=== PATIENT | female | born 1990 | race Caucasian/White ===

== ENCOUNTER → 2021-05-03 | Outpatient (CLI) | payer BC ==
[2021-05-03 11:09] LABS: BASO % 0.4 % (0.0-1.0); EOS # 0.1 10^3/uL (0.0-0.5); EOS % 1.3 % (0.0-3.0); HEMATOCRIT 35.1 % (36.0-47.0); HEMOGLOBIN 11.6 g/dl (12.0-15.5); LYMPH # 2.3 10^3/uL (1.5-5.0); LYMPH % 23.6 % (24.0-44.0); MEAN CORPUSCULAR HEMOGLOBIN 31.6 pg (27.0-33.0); MEAN CORPUSCULAR VOLUME 95.6 fl (80.0-96.0); MONO # 0.7 10^3/uL (0.0-0.8); MONO % 7.2 % (2.0-8.0); NEUTROPHILS # 6.5 10^3/uL (1.5-8.5); NEUTROPHILS % 67.1 % (36.0-66.0); PLATELET COUNT, AUTOMATED 243 10^3/uL (150-450); RED BLOOD COUNT 3.67 10^6/uL (4.00-5.40); WHITE BLOOD COUNT 9.7 10^3/uL (4.0-10.0)
== END ==
LOC: M LAB 09:37
PROVIDERS: ATTEND Nurse Practitioner Family
DX: O26.899 Other specified pregnancy related conditions, unspecified trimester (principal); R79.9 Abnormal finding of blood chemistry, unspecified

== ENCOUNTER → 2021-05-13 | Outpatient (CLI) | payer BC, OTHER ==
[2021-05-13 13:43] LABS: HEMATOCRIT 36.9 % (36.0-47.0); MEAN CORPUSCULAR HEMOGLOBIN 31.3 pg (27.0-33.0); MEAN CORPUSCULAR HGB CONC 32.5 g/dl (32.0-36.5); MEAN CORPUSCULAR VOLUME 96.3 fl (80.0-96.0); PLATELET COUNT, AUTOMATED 252 10^3/uL (150-450); RED BLOOD COUNT 3.83 10^6/uL (4.00-5.40); WHITE BLOOD COUNT 10.6 10^3/uL (4.0-10.0)
[2021-05-13 15:26] LABS: HEPATITIS C VIRUS ABY INDEX < 0.0 INDEX (<0.8); HIV 1&2 SCREEN CENTAUR NEGATIVE (NEGATIVE)
[2021-05-13 15:55] LABS: TOTAL PROTEIN,RANDOM URINE 20.1 MG/DL (0.0-12.0)
[2021-05-13 17:02] LABS: GC DNA AMPLIFICATION NEGATIVE (NEGATIVE)
== END ==
LOC: M PLALAB 10:24
PROVIDERS: ATTEND Obstetrics & Gynecology
DX: Z34.90 Encounter for supervision of normal pregnancy, unspecified, unspecified trimester (principal); Z3A.00 Weeks of gestation of pregnancy not specified

== ENCOUNTER → 2021-05-21 | Outpatient (CLI) | payer BC, OTHER ==
--- NOTE | 2021-05-21 14:51 | REP ---
INDICATION: DATING AND VIABILITY. COMPARISON: None. TECHNIQUE: Real-time sonographic evaluation of gravid uterus performed. FINDINGS: There is a single living intrauterine gestation, estimated gestational age is 8 weeks 5 days based on a crown-rump length of 21 mm. heart rate is 167 beats per minute. There is no subchorionic hemorrhage. The ovaries are normal in appearance. IMPRESSION: Viable intrauterine gestation, estimated gestational age 8 weeks 5 days, EDC 12/26/2021. <Electronically signed by Jay Pulido > 05/21/21 [id number]
== END ==
LOC: M WHC 12:22
PROVIDERS: ATTEND Obstetrics & Gynecology
DX: Z34.82 Encounter for supervision of other normal pregnancy, second trimester (principal)

== ENCOUNTER → 2021-06-04 | Outpatient (CLI) | payer BC, OTHER | LOC: M PLALAB 12:50 | PROVIDERS: ATTEND Obstetrics & Gynecology | DX: Z34.81 Encounter for supervision of other normal pregnancy, first trimester (principal) ==

== ENCOUNTER → 2021-11-08 | Outpatient (CLI) | payer BC, OTHER ==
[2021-11-08 13:35] LABS: HEMATOCRIT 32.5 % (36.0-47.0); HEMOGLOBIN 10.5 g/dl (12.0-15.5); MEAN CORPUSCULAR HEMOGLOBIN 30.2 pg (27.0-33.0); MEAN CORPUSCULAR HGB CONC 32.3 g/dl (32.0-36.5); MEAN CORPUSCULAR VOLUME 93.4 fl (80.0-96.0); PLATELET COUNT, AUTOMATED 244 10^3/uL (150-450); RED BLOOD COUNT 3.48 10^6/uL (4.00-5.40); WHITE BLOOD COUNT 12.6 10^3/uL (4.0-10.0)
[2021-11-08 14:10] LABS: TOTAL PROTEIN,RANDOM URINE 34.4 MG/DL (0.0-12.0)
[2021-11-08 14:17] LABS: ALBUMIN 2.8 GM/DL (3.2-5.2); ALT/SGPT 20 U/L (12-78); BILIRUBIN,TOTAL 0.2 MG/DL (0.2-1.0); BLOOD UREA NITROGEN 8 MG/DL (7-18); CARBON DIOXIDE LEVEL 27 MEQ/L (21-32); CHLORIDE LEVEL 105 MEQ/L (98-107); CREATININE FOR GFR 0.55 MG/DL (0.55-1.30); GLOMERULAR FILTRATION RATE > 60.0 (>60); GLUCOSE CHALLENGE TEST 1 HOUR 122 MG/DL (LESS THAN 140); GLUCOSE, FASTING 122 MG/DL (70-100); POTASSIUM SERUM 3.9 MEQ/L (3.5-5.1); SODIUM LEVEL 137 MEQ/L (136-145); TOTAL PROTEIN 6.3 GM/DL (6.4-8.2)
[2021-11-08 16:27] LABS: GC DNA AMPLIFICATION NEGATIVE (NEGATIVE)
== END ==
LOC: M PLALAB 10:54
PROVIDERS: ATTEND Obstetrics & Gynecology
DX: Z34.82 Encounter for supervision of other normal pregnancy, second trimester (principal)

== ENCOUNTER 2021-11-11 11:24 | Outpatient (CLI) | payer BC, OTHER ==
[~2021-11-11] VITALS: Ht 167.6 cm; Wt 91.7 kg
[2021-11-11 11:45] VITALS: BP 131/60
[2021-11-11] MEDS ORDERED: PRENTAB9 PO (11:49)
[2021-11-11] MEDS ORDERED: GABA-283 PO (11:57)
[2021-11-11] MEDS ORDERED: FERR325T3 PO (11:57)
[2021-11-11] MEDS ORDERED: CLAR10CA3 PO (11:57)
[2021-11-11] MEDS ORDERED: HYDR-3363 PO ×2 (11:57)
[2021-11-11] MEDS ORDERED: BUSP10TA PO (11:57)
[2021-11-11 11:58] VITALS: BP 117/56
[2021-11-11] MEDS ORDERED: HOME MED LIST COMPLETE! XX SCH (12:00)
[2021-11-11 13:16] LABS: AMORPHOUS SEDIMENT SMALL (NEGATIVE); APPEARANCE, URINE CLOUDY (CLEAR); BACTERIA, URINE AUTO 1+ (NEGATIVE); BILIRUBIN, URINE AUTO NEGATIVE (NEGATIVE); BLOOD, URINE BLOOD NEGATIVE (NEGATIVE); CALCIUM OXALATE CRYSTALS SMALL; COLOR, URINE YELLOW (YELLOW); GLUCOSE, URINE (UA) AUTO NEGATIVE (NEGATIVE); KETONE, URINE AUTO NEGATIVE (NEGATIVE); LEUKOCYTE ESTERASE, URINE AUTO NEGATIVE (NEGATIVE); MUCUS, URINE SMALL (NEGATIVE); NITRITE, URINE AUTO NEGATIVE (NEGATIVE); PROTEIN, URINE AUTO 1+ mg/dL (NEGATIVE); RBC, URINE AUTO 15 /HPF (0-3); SPECIFIC GRAVITY URINE AUTO 1.018 (1.002-1.035); SQUAMOUS EPITHELIAL CELL UR AU 16 /HPF (0-6); TRANSITIONAL EPITHELIAL AUTO <1 /HPF; UROBILINOGEN, URINE AUTO 0.2 mg/dL (0.0-2.0); WBC, URINE AUTO 2 /HPF (0-3)
[2021-11-11 13:34] VITALS: BP 117/58
[2021-11-11 14:07] LABS: HEMOGLOBIN 10.4 g/dl (12.0-15.5); MEAN CORPUSCULAR HEMOGLOBIN 30.4 pg (27.0-33.0); MEAN CORPUSCULAR HGB CONC 32.5 g/dl (32.0-36.5); MEAN CORPUSCULAR VOLUME 93.6 fl (80.0-96.0); PLATELET COUNT, AUTOMATED 243 10^3/uL (150-450); RED BLOOD COUNT 3.42 10^6/uL (4.00-5.40); WHITE BLOOD COUNT 13.9 10^3/uL (4.0-10.0)
[2021-11-11 14:34] LABS: ALBUMIN 2.7 GM/DL (3.2-5.2); ALT/SGPT 17 U/L (12-78); BILIRUBIN,TOTAL 0.2 MG/DL (0.2-1.0); BLOOD UREA NITROGEN 11 MG/DL (7-18); CARBON DIOXIDE LEVEL 25 MEQ/L (21-32); CHLORIDE LEVEL 108 MEQ/L (98-107); CREATININE FOR GFR 0.56 MG/DL (0.55-1.30); GLOMERULAR FILTRATION RATE > 60.0 (>60); GLUCOSE, FASTING 86 MG/DL (70-100); POTASSIUM SERUM 4.2 MEQ/L (3.5-5.1); SODIUM LEVEL 138 MEQ/L (136-145); TOTAL PROTEIN 6.4 GM/DL (6.4-8.2)
[2021-11-11] MEDS ORDERED: SUMAtriptan SUCCINATE 25 MG TAB PO ONE (16:00)
[2021-12-05] MEDS ORDERED: ZYRT10TA12 PO (07:48)
== END 2021-11-11 16:30 | disposition home or self-care (01) ==
LOC: M LDO 11:24
PROVIDERS: ATTEND Advanced Practice Midwife
DX: O26.893 Other specified pregnancy related conditions, third trimester (principal); O99.513 Diseases of the respiratory system complicating pregnancy, third trimester; G43.909 Migraine, unspecified, not intractable, without status migrainosus; G40.909 Epilepsy, unspecified, not intractable, without status epilepticus; J00 Acute nasopharyngitis [common cold]; O34.219 Maternal care for unspecified type scar from previous cesarean delivery; O99.353 Diseases of the nervous system complicating pregnancy, third trimester; Z3A.33 33 weeks gestation of pregnancy
CPT/HCPCS: 36415; 59025; 80053; 81001; 85027; 87086; 87486; 87581; 87633; 87798; G0463

== ENCOUNTER → 2021-12-03 | Outpatient (REF) | payer BC, MEDICAID, OTHER ==
[~2021-12-03] MED LIST: BUSP10TA PO; CLAR10CA3 PO; FERR325T3 PO; GABA-283 PO; HYDR-3363 PO; IBUP-1022 PO; OXYC-517 PO; PRENTAB9 PO; ZYRT10TA12 PO
== END ==
LOC: M SFHCWAGY 16:59
PROVIDERS: ATTEND Obstetrics & Gynecology
DX: Z36.85 Encounter for antenatal screening for Streptococcus B (principal); Z3A.36 36 weeks gestation of pregnancy

== ENCOUNTER → 2021-12-14 | Outpatient (CLI) | payer BC, MEDICAID, OTHER ==
[~2021-12-14] MED LIST changes: -IBUP-1022 PO; -OXYC-517 PO
== END ==
LOC: M LABSMTC 09:13
PROVIDERS: ATTEND Anesthesiology
DX: Z11.52 Encounter for screening for COVID-19 (principal); Z20.822 Contact with and (suspected) exposure to COVID-19

== ENCOUNTER 2021-12-19 05:25 | Inpatient (IN) | payer MEDICAID ==
[~2021-12-19] VITALS: Ht 167.6 cm; Wt 95.5 kg
[2021-12-19] VITALS (9 sets, daily range): BP systolic 97–140; BP diastolic 57–70
[2021-12-19] MEDS ORDERED: LR 1,000 ML IV SCH ×2 (05:40→06:00)
[2021-12-19] MEDS ORDERED: INSULIN LISPRO (NovoLOG) PER UNIT SC PRN (05:40)
[2021-12-19] MEDS ORDERED: LACTATED RINGER'S 1000 ML IV ONE (06:00)
[2021-12-19] MEDS ORDERED: ceFAZolin SOD 2 GM in IV 1 EA IV ONE (06:00)
[2021-12-19] MEDS ORDERED: BICITRA 30ML SOLN UDC PO ONE (06:00)
[2021-12-19] MEDS ORDERED: HOME MED LIST COMPLETE! XX SCH (06:05)
[2021-12-19 06:13] LABS: HEMATOCRIT 31.9 % (36.0-47.0); HEMOGLOBIN 10.5 g/dl (12.0-15.5); MEAN CORPUSCULAR HEMOGLOBIN 30.4 pg (27.0-33.0); MEAN CORPUSCULAR HGB CONC 32.9 g/dl (32.0-36.5); MEAN CORPUSCULAR VOLUME 92.5 fl (80.0-96.0); PLATELET COUNT, AUTOMATED 251 10^3/uL (150-450); RED BLOOD COUNT 3.45 10^6/uL (4.00-5.40); WHITE BLOOD COUNT 11.5 10^3/uL (4.0-10.0)
[2021-12-19] MEDS ORDERED: PHENYLephrine 500MCG 5ML (100MCG/ML) SYRINGE As Ordered ONE (07:20)
[2021-12-19] MEDS ORDERED: MORPHINE PRES-FREE INJ 10 MG/10 ML VIAL As Ordered ONE (07:20)
[2021-12-19] MEDS ORDERED: OXYTOCIN 30 UNITS IN 0.9% NaCl 500ML IV BAG (J2590) As Ordered ONE ×2 (07:20→09:15)
[2021-12-19] MEDS ORDERED: ePHEDrine SULFATE 25 MG/5 ML(5MG/ML) SYRINGE As Ordered ONE (07:20)
[2021-12-19] MEDS ORDERED: ONDANSETRON 4MG/2ML VIAL As Ordered ONE (08:06)
[2021-12-19] MEDS ORDERED: KETOROLAC 60MG 2ML VIAL As Ordered ONE (08:06)
[2021-12-19] MEDS ORDERED: METOCLOPRAMIDE INJ 10MG/2ML VIAL (J2765 PER 1) As Ordered ONE (08:35)
[2021-12-19] MEDS ORDERED: ONDANSETRON 4MG/2ML VIAL IV PRN ×3 (09:10→09:35)
[2021-12-19] MEDS ORDERED: METHYLERGONOVINE MALEATE 0.2 MG/ML VIAL (J2210) IM PRN (09:10)
[2021-12-19] MEDS ORDERED: RHOGAM 300 MCG (1500 IU) INJ (J2790) IM SCH (09:10)
[2021-12-19] MEDS ORDERED: TRANEXAMIC ACID INJection 1,000 MG in NS 100 ML IV PRN (09:10)
[2021-12-19] MEDS ORDERED: SIMETHICONE 80MG CHEW TAB PO PRN (09:10)
[2021-12-19] MEDS ORDERED: OXYTOCIN DRIP 30 UNITS in IV 1 EA IV PRN (09:10)
[2021-12-19] MEDS ORDERED: CARBOPROST TROMETHAMINE 250 MCG/ML AMP IM PRN (09:10)
[2021-12-19] MEDS ORDERED: **NOTE PATIENT COMMENT** MISC XX SCH (09:35)
[2021-12-19] MEDS ORDERED: METOCLOPRAMIDE INJ 10MG/2ML VIAL (J2765 PER 1) IV PRN (09:35)
[2021-12-19] MEDS ORDERED: oxyCODONE 5MG TAB PO PRN (09:35)
[2021-12-19] MEDS ORDERED: NALOXONE INJ 0.4MG/1ML VIAL (J2310 PER 1MG) IV PRN ×2 (09:35)
[2021-12-19] MEDS ORDERED: diphenhydrAMINE 50MG/ML VIAL (J1200) IV PRN (09:35)
[2021-12-19] MEDS ORDERED: fentaNYL 100 MCG/2 ML INJECTION As Ordered ONE (09:46)
[2021-12-19] MEDS: fentaNYL 100 MCG/2 ML INJECTION IV PRN ×4 (09:51→10:21)
[2021-12-19] MEDS ORDERED: diphenhydrAMINE 50MG/ML VIAL (J1200) As Ordered ONE (09:57)
[2021-12-19] MEDS: diphenhydrAMINE 50MG/ML VIAL (J1200) IV PRN ×3 (10:04→21:42)
[2021-12-19] MEDS ORDERED: oxyCODONE 5MG TAB As Ordered ONE (10:23)
[2021-12-19] MEDS: oxyCODONE 5MG TAB PO PRN ×2 (10:24→16:01)
[2021-12-19] MEDS: busPIRone 10 MG TAB PO SCH ×2 (11:39→21:42)
[2021-12-19] MEDS: ACETAMINOPHEN 500 MG TAB PO SCH ×3 (12:15→23:59)
[2021-12-19] MEDS: LR 1,000 ML IV SCH ×2 (13:26→21:59)
[2021-12-19] MEDS: SLF 3 ML SYR IV SCH ×2 (14:00→22:00)
[2021-12-19] MEDS: KETOROLAC 30 MG/ML 1ML VIAL IV SCH ×2 (14:54→21:43)
[2021-12-19] MEDS: GABAPENTIN 400MG CAP PO SCH ×2 (16:00→21:42)
[2021-12-20] VITALS (7 sets, daily range): BP systolic 103–134; BP diastolic 57–65
[2021-12-20] MEDS: LR 1,000 ML IV SCH (01:10)
[2021-12-20] MEDS: KETOROLAC 30 MG/ML 1ML VIAL IV SCH (03:21)
[2021-12-20] MEDS: ACETAMINOPHEN 500 MG TAB PO SCH ×3 (05:46→19:03)
[2021-12-20] MEDS: SLF 3 ML SYR IV SCH (05:46)
[2021-12-20 08:00] LABS: HEMATOCRIT 25.8 % (36.0-47.0); MEAN CORPUSCULAR HEMOGLOBIN 31.1 pg (27.0-33.0); MEAN CORPUSCULAR HGB CONC 32.9 g/dl (32.0-36.5); MEAN CORPUSCULAR VOLUME 94.5 fl (80.0-96.0); PLATELET COUNT, AUTOMATED 204 10^3/uL (150-450); RED BLOOD COUNT 2.73 10^6/uL (4.00-5.40); WHITE BLOOD COUNT 10.7 10^3/uL (4.0-10.0)
[2021-12-20 08:05] LABS: HEMOGLOBIN 8.5 g/dl (12.0-15.5)
[2021-12-20] MEDS: IBUPROFEN 600MG TAB PO SCH ×3 (08:22→21:12)
[2021-12-20] MEDS: GABAPENTIN 400MG CAP PO SCH ×3 (08:22→21:12)
[2021-12-20] MEDS: PRENATAL VITAMINS CHEWABLE TABLET PO SCH (08:22)
[2021-12-20] MEDS: busPIRone 10 MG TAB PO SCH ×2 (08:22→21:12)
[2021-12-20] MEDS: oxyCODONE 5MG TAB PO PRN ×2 (16:12→22:39)
[2021-12-21] MEDS: ACETAMINOPHEN 500 MG TAB PO SCH ×2 (00:40→05:01)
[2021-12-21 02:00] VITALS: BP 108/65
[2021-12-21] MEDS: IBUPROFEN 600MG TAB PO SCH ×2 (02:58→09:33)
[2021-12-21] MEDS: oxyCODONE 5MG TAB PO PRN (05:00)
[2021-12-21 05:47] VITALS: BP 129/67
[2021-12-21] MEDS ORDERED: MEASLES,MUMPS,RUBELLA VACCINE INJ (MMR-II) (90707) SC ONE (09:00)
[2021-12-21] MEDS ORDERED: OXYC-517 PO (09:05)
[2021-12-21] MEDS ORDERED: IBUP-1022 PO (09:05)
[2021-12-21] MEDS: busPIRone 10 MG TAB PO SCH (09:33)
[2021-12-21] MEDS: PRENATAL VITAMINS CHEWABLE TABLET PO SCH (09:34)
[2021-12-21] MEDS: GABAPENTIN 400MG CAP PO SCH (09:34)
[2021-12-21 10:00] VITALS: BP 122/58
== END 2021-12-21 11:14 | disposition home or self-care (01) | DRG 540 ==
LOC: M LDI 05:25 → M OBS 11:05
PROVIDERS: ADMIT Obstetrics & Gynecology; ATTEND Obstetrics & Gynecology
PROC: 10D00Z1 Extraction of Products of Conception, Low, Open Approach (ICD-10-PCS; principal; 2021-12-19 07:30)
DX: O34.211 Maternal care for low transverse scar from previous cesarean delivery (principal); Z37.0 Single live birth; Z3A.39 39 weeks gestation of pregnancy

== ENCOUNTER → 2024-08-12 | Outpatient (CLI) | payer BC, OTHER ==
[~2024-08-12] MED LIST changes: -GABA-283 PO; +GABA-284 PO; +IBUP-1022 PO; +OXYC-517 PO
[2024-08-12 15:04] LABS: HEMATOCRIT 38.3 % (36.0-47.0); MEAN CORPUSCULAR HEMOGLOBIN 31.6 pg (27.0-33.0); MEAN CORPUSCULAR HGB CONC 33.9 g/dl (32.0-36.5); MEAN CORPUSCULAR VOLUME 93.2 fl (80.0-96.0); PLATELET COUNT, AUTOMATED 239 10^3/uL (150-450); RED BLOOD COUNT 4.11 10^6/uL (4.00-5.40); WHITE BLOOD COUNT 7.9 10^3/uL (4.0-10.0)
[2024-08-12 15:29] LABS: HCG, SERUM QUANTITATIVE < 2.6 MIU/ML (<4.2)
[2024-08-12 15:34] LABS: FREE T4 1.17 NG/DL (0.89-1.76); THYROID STIMULATING HORMONE 2.055 uIU/ML (0.55-4.78)
[2024-08-17 13:52] LABS: HPV APTIMA Not Detected (Not Detected)
== END ==
LOC: M PLALAB 11:30
PROVIDERS: ATTEND Obstetrics & Gynecology
DX: N93.9 Abnormal uterine and vaginal bleeding, unspecified (principal)